=== PATIENT | male | born 1965 | race Caucasian/White ===

== ENCOUNTER 2018-07-10 13:17 | Outpatient (REF) | payer OTHER, SELFPAY ==
[2018-07-10 19:41] LABS: HCT 40.6 % (40.0-50.0); HGB 13.8 g/dL (13.5-17.5); Mean Corpuscular Hemoglobin 34.4 pg (27.0-33.0); Mean Corpuscular Volume 101.2 fL (80-95); Platelet Count 493 x1000/uL (130-400); RBC 4.01 m/cumm (4.50-6.00); RBC Distribution Width 12.2 % (11.8-14.1)
[2018-07-10 19:45] LABS: ALT 48 U/L (12-78); AST 80 U/L (15-37); Albumin 3.1 g/dL (3.4-5.0); Alkaline Phosphatase 177 U/L (46-116); Anion Gap 9.7 mmol/L (3-11); BUN 4 mg/dL (7-18); Bilirubin, Total 0.2 mg/dL (0.2-1.0); CO2 23.3 mmol/L (21.0-32.0); CREATININE 0.59 mg/dL (0.70-1.30); Calcium 8.2 mg/dL (8.5-10.1); Chloride 104 mmol/L (98-107); Cholesterol 179 mg/dL (50-200); Glucose 79 mg/dL (70-100); HDL Cholesterol 67 mg/dL (40-60); LDL CHOLESTEROL 100 mg/dL (<100); Potassium 4.7 mmol/L (3.5-5.1); Sodium 137 mmol/L (136-145); Total Protein 7.2 g/dL (6.4-8.2); Triglyceride 86 mg/dL (30-150)
[2018-07-13 10:21] LABS: Hepatitis C Ab w Rflx HCV PCR Negative (NEGAT)
== END 2018-07-10 13:37 ==
LOC: NCHCN 13:17
PROVIDERS: Visit Provider Internal Medicine
DX: I10 Essential (primary) hypertension (principal); Z00.00 Encounter for general adult medical examination without abnormal findings; Z11.59 Encounter for screening for other viral diseases
CPT/HCPCS: 80053; 80061; 83721; 85027; 86803

== ENCOUNTER 2018-11-30 21:02 | Outpatient (REF) | payer OTHER, SELFPAY ==
[2018-11-30 21:41] LABS: HGB 16.8 g/dL (13.5-17.5); Mean Corpuscular Hemoglobin 32.9 pg (27.0-33.0); Mean Corpuscular Volume 94.1 fL (80-95); Mean Platelet Volume 10.2 fL (8.0-11.0); Platelet Count 218 x1000/uL (130-400); RBC Distribution Width 13.3 % (11.8-14.1); White Blood Cell Count 8.13 k/cumm (4.4-10.8)
[2018-11-30 22:14] LABS: ALT 115 U/L (12-78); AST 220 U/L (15-37); Albumin 3.4 g/dL (3.4-5.0); Alkaline Phosphatase 133 U/L (46-116); BUN 7 mg/dL (7-18); Bilirubin, Total 1.1 mg/dL (0.2-1.0); CREATININE 0.75 mg/dL (0.70-1.30); Chloride 98 mmol/L (98-107); Glucose 80 mg/dL (70-100); Magnesium 1.7 mg/dL (1.8-2.4); Potassium 4.2 mmol/L (3.5-5.1); Sodium 136 mmol/L (136-145); TSH 1.54 uIU/mL (0.358-3.74); Total Protein 7.6 g/dL (6.4-8.2); Vitamin B12 518 pg/mL (193-986)
== END 2018-11-30 21:22 ==
LOC: NCHCN 21:02
PROVIDERS: Visit Provider Internal Medicine
DX: R55 Syncope and collapse (principal); J44.9 Chronic obstructive pulmonary disease, unspecified; R56.9 Unspecified convulsions; F10.11 Alcohol abuse, in remission; Z72.0 Tobacco use
CPT/HCPCS: 80053; 85027; 82607; 83735; 84443

== ENCOUNTER 2018-12-24 15:58 | Outpatient (CLI) | payer OTHER, SELFPAY | END 2018-12-24 16:18 | PROVIDERS: PCP Internal Medicine; Visit Provider Internal Medicine | DX: R69 Illness, unspecified (principal) ==

== ENCOUNTER 2019-02-17 00:36 | Outpatient (CLI) | payer OTHER, SELFPAY ==
--- NOTE | 2019-02-17 11:28 | DI.MRI_ITS ---
SYMPTOMS/DIAGNOSIS: CHRONIC LOW BACK PAIN, NECK PAIN, M54.2, M54.5 LUMBAR MRI: Sagittal T2, sagittal T1, sagittal STIR, and axial T1 and T2 and axial T2 MSMA pulse sequences were performed. There is an old compression fracture of L1. No other significant bony abnormality is seen. At L1-L2, there is evidence of degenerative disc disease. There is no disc protrusion. There are mild facet joint degenerative changes and no evidence of spinal stenosis. At L2-3, there is no evidence of a disc protrusion. Mild facet joint DJD is identified and there is no evidence of spinal stenosis. At L3-4, there is no evidence of a disc protrusion. Mild facet joint DJD is evident and there is no evidence of spinal stenosis. At L4-5, there is no evidence of a disc protrusion. Moderate facet joint DJD is identified and there is no evidence of significant spinal stenosis. At L5-S1, the disc appears intact with no evidence of a protrusion. Mild facet joint DJD is identified and there is no evidence of spinal stenosis. No intrinsic abnormality involving the lower dorsal cord, conus or filum terminale is seen. SUMMARY: An old compression fracture of L1 is demonstrated. There is evidence of facet joint DJD throughout the lumbar spine. No disc protrusion or evidence of significant spinal stenosis is apparent.
== END 2019-02-17 00:56 ==
PROVIDERS: PCP Internal Medicine; Visit Provider Internal Medicine
DX: M54.5 Low back pain (principal); M54.2 Cervicalgia; G89.29 Other chronic pain; M48.56XD Collapsed vertebra, not elsewhere classified, lumbar region, subsequent encounter for fracture with routine healing; M51.36 Other intervertebral disc degeneration, lumbar region; M47.817 Spondylosis without myelopathy or radiculopathy, lumbosacral region
CPT/HCPCS: 72148

== ENCOUNTER 2019-04-06 10:24 | Outpatient (REF) | payer OTHER, SELFPAY ==
[2019-04-06 13:41] LABS: ALT 152 U/L (12-78); AST 183 U/L (15-37); Alkaline Phosphatase 161 U/L (46-116); Bilirubin, Direct 0.13 mg/dL (0.00-0.20); Bilirubin, Total 0.2 mg/dL (0.2-1.0); Total Protein 8.3 g/dL (6.4-8.2)
== END 2019-04-06 10:44 ==
LOC: NCHCN 10:24
PROVIDERS: PCP Internal Medicine; Visit Provider Internal Medicine
DX: E83.42 Hypomagnesemia (principal); R94.5 Abnormal results of liver function studies
CPT/HCPCS: 80076; 83735

== ENCOUNTER 2019-05-21 12:10 | Outpatient (REF) | payer OTHER, SELFPAY ==
[2019-05-21 21:25] LABS: ALT 77 U/L (12-78); AST 45 U/L (15-37)
== END 2019-05-21 12:30 ==
LOC: NCHCN 12:10
PROVIDERS: PCP Internal Medicine; Visit Provider Nurse Practitioner Family
DX: R94.5 Abnormal results of liver function studies (principal)
CPT/HCPCS: 84450; 84460

== ENCOUNTER 2019-08-06 10:50 | Outpatient (REF) | payer OTHER, SELFPAY ==
[2019-08-06 14:11] LABS: ALT 15 U/L (16-63); AST 14 U/L (15-37); Albumin 3.7 g/dL (3.4-5.0); Alkaline Phosphatase 103 U/L (46-116); Anion Gap 8.9 mmol/L (3-11); BUN 6 mg/dL (7-18); Bilirubin, Total 0.3 mg/dL (0.2-1.0); CO2 27.1 mmol/L (21.0-32.0); Calcium 9.1 mg/dL (8.5-10.1); Chloride 101 mmol/L (98-107); Glucose 89 mg/dL (70-100); Potassium 4.6 mmol/L (3.5-5.1); Sodium 137 mmol/L (136-145); Total Protein 6.9 g/dL (6.4-8.2)
== END 2019-08-06 11:10 ==
LOC: NCHCN 10:50
PROVIDERS: PCP Internal Medicine; Visit Provider Internal Medicine
DX: I10 Essential (primary) hypertension (principal); J44.9 Chronic obstructive pulmonary disease, unspecified
CPT/HCPCS: 80053

== ENCOUNTER 2020-04-10 15:36 | Outpatient (REF) | payer OTHER, SELFPAY ==
[2020-04-10 20:48] LABS: Anion Gap 12.6 mmol/L (3-11); BUN 18 mg/dL (7-18); CO2 23.4 mmol/L (21.0-32.0); CREATININE 0.96 mg/dL (0.70-1.30); Calcium 9.1 mg/dL (8.5-10.1); Chloride 103 mmol/L (98-107); Glucose 77 mg/dL (74-106); Magnesium 2.2 mg/dL (1.8-2.4); Potassium 4.5 mmol/L (3.5-5.1); Sodium 139 mmol/L (136-145)
== END 2020-04-10 15:56 ==
LOC: NCHCN 15:36
PROVIDERS: PCP Internal Medicine; Visit Provider Internal Medicine
DX: F10.10 Alcohol abuse, uncomplicated (principal); R94.5 Abnormal results of liver function studies
CPT/HCPCS: 80048; 83735

== ENCOUNTER 2021-04-06 16:17 | Outpatient (REF) | payer OTHER, SELFPAY ==
[2021-04-06 12:58] LABS: HCT 44.7 % (40.0-50.0); HGB 15.3 g/dL (13.5-17.5); MCH 31.5 pg (27.0-33.0); MCHC 34.2 % (32.0-36.0); MPV 9.7 fL (8.0-11.0); Platelet Count 409 10^3/uL (130-400); RBC 4.86 10^6/uL (4.36-5.78); RDW 12.3 % (11.8-14.1); WBC 9.97 10^3/uL (4.4-10.8)
[2021-04-06 13:38] LABS: ALT 30 U/L (16-63); AST 26 U/L (15-37); Albumin 4.1 g/dL (3.4-5.0); Alkaline Phosphatase 96 U/L (46-116); Anion Gap 10.6 mmol/L (3-11); BUN 10 mg/dL (7-18); Bilirubin, Total 0.5 mg/dL (0.2-1.0); CO2 24.4 mmol/L (21.0-32.0); CREATININE 0.7 mg/dL (0.70-1.30); Chloride 104 mmol/L (98-107); Glucose 85 mg/dL (74-106); Potassium 4.8 mmol/L (3.5-5.1); Sodium 139 mmol/L (136-145); TSH 1.19 uIU/mL (0.36-3.74); Total Protein 7.4 g/dL (6.4-8.2); Vitamin B12 592 pg/mL (193-986)
== END 2021-04-06 16:18 | disposition home or self-care (01) ==
LOC: NCHCN 16:17
PROVIDERS: PCP Internal Medicine; Visit Provider Internal Medicine
DX: I10 Essential (primary) hypertension (principal); R41.3 Other amnesia; R53.83 Other fatigue; F10.21 Alcohol dependence, in remission; J44.9 Chronic obstructive pulmonary disease, unspecified
CPT/HCPCS: 80053; 85027; 82607; 84443

== ENCOUNTER 2021-12-21 00:17 | Outpatient (CLI) | payer OTHER, SELFPAY ==
--- NOTE | 2021-12-21 | DI.CTLCSR_ITS ---
Exam(s) CT CHEST LUNG CANCER SCREEN EXAM: CT CHEST LUNG CANCER SCREEN CLINICAL HISTORY: SCREENING FOR LUNG CA, SMOKER, F17.210 TECHNIQUE: Imaging Protocol: Axial computed tomography images with coronal and sagittal reformatted images were created and reviewed COMPARISON: CR CHEST 2 VIEWS PA,LAT from 09/15/2013 FINDINGS: Tracheobronchial tree: Patent where visualized. Pulmonary parenchyma: No consolidation or dominant measurable mass. Mild centrilobular emphysematous changes are present. Scarring or atelectasis is seen in the lung bases, particularly in the right lo wer lobe. There is a 1 cm area of nodularity associated with the scarring. Lung Nodules: None. Mediastinum and Monica: No dominant adenopathy or fluid collection. The esophagus is unremarkable. Thyroid gland: Unremarkable. Lymph nodes: Unremarkable. Pleura: No effusion or pneumothorax. Heart: The heart is not dilated. Coronary artery calcifications are present. No pericardial effusion . Aorta: Thoracic aorta non-dilated.Atherosclerosis. Upper abdomen: Unremarkable. Soft Tissues: Unremarkable. Bones: There are old healed rib fractures. There is an old to L1 compression fracture deformity. IMPRESSION: Right basilar pulmonary scarring with a 1 cm area of nodularity associated with the scarring. A shor t interval follow-up LD CT at 3 months is recommended for re-evaluation. Lung RADS Cat 4A - Suspicious: Findings for which additional diagnostic testing and/or tissue samplin g recommended Lung-RADS 1.0 CATEGORIES: Category 0 - Prior chest CT exam(s) being located for comparison. Category 1 - Annual screening in 12 months. No nodules or definitely benign nodules. Category 2 - Annual screening in 12 months. Benign appearance. Nodules with low likelihood of becomin g active cancer. Category 3 - 6-month follow-up. Probably benign. Short-term follow-up suggested. Nodules with low lik elihood of becoming active cancer. Category 4A - 3-month follow-up and CT/PET if >8 mm in size. Suspicious finding. Findings which requi re additional testing. Category 4B - Findings which require additional testing and tissue sampling. Suspicious finding. Category 4X - Category 3 or 4 nodules with additional features or imaging findings that increases the suspicion of malignancy. Modifier S- Potentially clinically significant finding. (Non lung cancer) RADIATION DOSE DELIVERED: 82.9mGy.cm Total DLP !Error CTDIvol 82.9mGy.cm Total DLP !Error CTDIvol DATA REPOSITORY: All CT scans at this facility are submitted to the National Radiology Data Registry (NRDR) Dose Index Registry (DIR) with the [employer] (ACR). RADIATION OPTIMIZATION: All CT scans at this facility use at least one of these dose optimization te chniques: automated exposure control; mA and/or kV adjustment per patient size (includes targeted exa ms where dose is matched to clinical indication); or iterative reconstruction.
== END 2021-12-21 00:37 ==
PROVIDERS: PCP Internal Medicine; Visit Provider Internal Medicine
DX: F17.210 Nicotine dependence, cigarettes, uncomplicated (principal); Z12.2 Encounter for screening for malignant neoplasm of respiratory organs; J98.11 Atelectasis; R91.8 Other nonspecific abnormal finding of lung field
CPT/HCPCS: 71271

== ENCOUNTER 2022-04-12 19:19 | Outpatient (REF) | payer OTHER, SELFPAY ==
[2022-04-12 14:26] LABS: HGB 16.5 g/dL (13.5-17.5); MCH 32.6 pg (27.0-33.0); MCHC 34.4 % (32.0-36.0); MCV 95 fL (80-95); MPV 9.2 fL (8.0-11.0); Platelet Count 430 10^3/uL (130-400); RBC 5.06 10^6/uL (4.36-5.78); WBC 8.71 10^3/uL (4.4-10.8)
[2022-04-12 15:04] LABS: ALT 51 U/L (16-63); AST 59 U/L (15-37); Albumin 3.8 g/dL (3.4-5.0); Alkaline Phosphatase 135 U/L (46-116); Anion Gap 15.3 mmol/L (3-11); BUN 10 mg/dL (7-18); Bilirubin, Total 0.4 mg/dL (0.2-1.0); CO2 21.7 mmol/L (21.0-32.0); CREATININE 0.7 mg/dL (0.70-1.30); Calcium 9.3 mg/dL (8.5-10.1); Chloride 99 mmol/L (98-107); Glucose 102 mg/dL (74-106); Potassium 5.1 mmol/L (3.5-5.1); Sodium 136 mmol/L (136-145); Total Protein 7.8 g/dL (6.4-8.2)
== END 2022-04-12 19:20 | disposition home or self-care (01) ==
LOC: NCHCN 19:19
PROVIDERS: PCP Internal Medicine; Visit Provider Family Medicine
DX: I10 Essential (primary) hypertension (principal); F32.9 Major depressive disorder, single episode, unspecified; F10.21 Alcohol dependence, in remission; J44.9 Chronic obstructive pulmonary disease, unspecified
CPT/HCPCS: 80053; 85027

== ENCOUNTER 2022-06-14 00:33 | Outpatient (CLI) | payer OTHER, SELFPAY ==
--- NOTE | 2022-06-14 13:45 | DI.CT_ITS ---
Exam(s) CT CHEST WO EXAM: CT CHEST WO CLINICAL HISTORY: 6-MO F/U ABNL CHEST CT, R91.8 TECHNIQUE: Imaging Protocol: Axial computed tomography images with coronal and sagittal reformatted images were created and reviewed CONTRAST MATERIAL: Intravenous: Omnipaque 350 Contrast volume:structured data in ml. COMPARISON: CR CHEST 2 VIEWS PA,LAT from 09/15/[address] CHEST LUNG CANCER SCREEN from 12/21/2021 FINDINGS: Tracheobronchial tree: No bronchiectasis or mucous plugging. Mediastinum and Monica: No dominant adenopathy or fluid collection. Pulmonary parenchyma: Mild emphysematous changes, greater in the upper lobes. Scarring in the right lateral upper and lower lobes. No change in area of nodular scarring in the lateral right lower lob e. No consolidation or dominant measurable mass. No new pulmonary nodules Pleura: No effusion or pneumothorax. Heart: The heart is not dilated. Mild coronary artery calcifications are seen. Aorta: Thoracic aorta non-dilated. Minimal atherosclerotic calcification. Upper abdomen: Unremarkable. Lymph nodes: Within normal limits. Bones: Multiple old right-sided rib fractures. Old L1 compression fracture. Mild degenerative disc changes in the lower thoracic region. Tubes, Catheters, and Lines: None Soft tissues: Mild bilateral gynecomastia. IMPRESSION: Stable appearance of scarring in the lateral and posterior right upper and lower lobes. No suspiciou s mass identified. The patient is at high risk for lung cancer, a low-dose screening CT could be performed in 1 year. RADIATION DOSE DELIVERED: 544.6mGy.cm Total DLP DATA REPOSITORY: All CT scans at this facility are submitted to the National Radiology Data Registry (NRDR) Dose Index Registry (DIR) with the [employer] (ACR). RADIATION OPTIMIZATION: All CT scans at this facility use at least one of these dose optimization te chniques: automated exposure control; mA and/or kV adjustment per patient size (includes targeted exa ms where dose is matched to clinical indication); or iterative reconstruction.
== END 2022-06-14 00:53 ==
PROVIDERS: PCP Internal Medicine; Visit Provider Family Medicine
DX: J98.4 Other disorders of lung
CPT/HCPCS: 71250

== ENCOUNTER 2023-03-24 09:54 | Outpatient (REF) | payer OTHER, SELFPAY ==
[2023-03-24 16:48] LABS: ALT 14 U/L (16-63); AST 17 U/L (15-37); Albumin 3.1 g/dL (3.4-5.0); Alkaline Phosphatase 118 U/L (46-116); Anion Gap 8.8 mmol/L (3-11); BUN 4 mg/dL (7-18); Bilirubin, Total 0.2 mg/dL (0.2-1.0); CO2 28.2 mmol/L (21.0-32.0); CREATININE 0.7 mg/dL (0.70-1.30); Calcium 8.6 mg/dL (8.5-10.1); Calculated LDL 100 mg/dL (<100); Chloride 96 mmol/L (98-107); Cholesterol 173 mg/dL (<200); Glucose 90 mg/dL (74-106); HDL Cholesterol 51 mg/dL (40-60); Sodium 133 mmol/L (136-145); Total Protein 7.4 g/dL (6.4-8.2); Triglyceride 110 mg/dL (<150)
== END 2023-03-24 09:55 | disposition home or self-care (01) ==
LOC: NCHCN 09:54
PROVIDERS: PCP Internal Medicine; Visit Provider Family Medicine
DX: I10 Essential (primary) hypertension (principal); R94.5 Abnormal results of liver function studies; F32.89 Other specified depressive episodes
CPT/HCPCS: 80053; 80061

== ENCOUNTER 2023-06-12 18:25 | Outpatient (REF) | payer OTHER, SELFPAY ==
[2023-06-12 16:06] LABS: Abs Immature Grans 0.03 10^3/uL (0.0-0.06); Absolute Basophil Count 0.16 10^3/uL (0.0-0.2); Absolute Lymphocyte Count 1.68 10^3/uL (1.2-3.4); Absolute Monocyte Count 0.96 10^3/uL (0.1-0.8); Absolute Neutrophil Count 6.31 10^3/uL (1.2-6.7); Basophils % 1.7; Eosinophils % 4.2; HGB 12.1 g/dL (13.5-17.5); Immature Grans % 0.3; Lymphocytes % 17.6; MCH 32.4 pg (27.0-33.0); MCHC 34.6 % (32.0-36.0); MCV 94 fL (80-95); Monocytes % 10.1; Neutrophils % 66.1; RBC 3.73 10^6/uL (4.36-5.78); RDW 14.2 % (11.8-14.1); WBC 9.54 10^3/uL (4.4-10.8)
[2023-06-12 17:11] LABS: ALT 27 U/L (16-63); AST 34 U/L (15-37); Albumin 2.5 g/dL (3.4-5.0); Alkaline Phosphatase 136 U/L (46-116); Anion Gap 12.9 mmol/L (3-11); BUN 4 mg/dL (7-18); Bilirubin, Total 0.3 mg/dL (0.2-1.0); CO2 22.1 mmol/L (21.0-32.0); CREATININE 0.6 mg/dL (0.70-1.30); Calcium 8.4 mg/dL (8.5-10.1); Chloride 96 mmol/L (98-107); Estimated GFR 111.89 (mL/min/1.73m2); Glucose 78 mg/dL (74-106); Potassium 5.1 mmol/L (3.5-5.1); Sodium 131 mmol/L (136-145); Total Protein 6.5 g/dL (6.4-8.2)
[2023-06-12 17:34] LABS: Diff Comment PLT Morph Reviewed; RBC Morphology Normal
== END 2023-06-12 18:26 | disposition home or self-care (01) ==
LOC: NCHCN 18:25
PROVIDERS: PCP Internal Medicine; Visit Provider Family Medicine
DX: R56.9 Unspecified convulsions (principal); R25.1 Tremor, unspecified; I10 Essential (primary) hypertension; R07.89 Other chest pain; J44.9 Chronic obstructive pulmonary disease, unspecified
CPT/HCPCS: 80053; 85025

== ENCOUNTER → 2023-06-13 01:00 | Outpatient (CLI) | payer OTHER, SELFPAY ==
--- NOTE | 2023-06-13 | DI.CTLCSR_ITS ---
Exam(s) CT CHEST LUNG CANCER SCREEN EXAM: CT CHEST LUNG CANCER SCREEN CLINICAL HISTORY: CIGARETTE SMOKER, F17.210, SCREENING FOR LUNG CA TECHNIQUE: Imaging Protocol: Axial computed tomography images with coronal and sagittal reformatted images were created and reviewed. Low dose screening protocol. COMPARISON: CT CT CHEST WO from 06/14/2022 CR XR RIBS ONLY LT from 06/13/2023 FINDINGS: Tracheobronchial tree: No bronchiectasis or mucus plugging.. Mediastinum and Monica: No dominant adenopathy or fluid collection. Pulmonary parenchyma: Mild bibasilar scarring. No consolidation or dominant measurable mass. Mild em physematous changes. Lung Nodules: None. Pleura: Small to moderate-sized left pleural effusion.. No pneumothorax. Heart: The heart is not dilated. [id number] coronary artery calcifications are seen. Aorta: Thoracic aorta non-dilated. Upper abdomen: Unremarkable. Bones: Acute mildly displaced fractures of the left 8th through 11th ribs. Nondisplaced 7th rib frac ture. Old L1 compression fracture. Multiple old right rib fractures. Soft Tissues: Mild gynecomastia. IMPRESSION: No suspicious pulmonary nodules. Acute fractures of 7th through 11th ribs. No pneumothorax. Small to moderate-sized left pleural eff usion. Lung RADS Cat 1 - Negative: No nodules and definitely benign nodules Lung-RADS 1.0 CATEGORIES: Category 0 - Prior chest CT exam(s) being located for comparison. Category 1 - Annual screening in 12 months. No nodules or definitely benign nodules. Category 2 - Annual screening in 12 months. Benign appearance. Nodules with low likelihood of becomin g active cancer. Category 3 - 6-month follow-up. Probably benign. Short-term follow-up suggested. Nodules with low lik elihood of becoming active cancer. Category 4A - 3-month follow-up and CT/PET if >8 mm in size. Suspicious finding. Findings which requi re additional testing. Category 4B - Findings which require additional testing and tissue sampling. Category 4X - Category 3 or 4 nodules with additional features or imaging findings that increases the suspicion of malignancy. Modifier S- Potentially clinically significant findings (non lung cancer) RADIATION DOSE DELIVERED: 83.39mGy.cm Total DLP DATA REPOSITORY: All CT scans at this facility are submitted to the National Radiology Data Registry (NRDR) Dose Index Registry (DIR) with the [employer] (ACR). RADIATION OPTIMIZATION: All CT scans at this facility use at least one of these dose optimization te chniques: automated exposure control; mA and/or kV adjustment per patient size (includes targeted exa ms where dose is matched to clinical indication); or iterative reconstruction.
--- NOTE | 2023-06-13 11:10 | DI.RAD_ITS ---
Exam(s) XR RIBS ONLY LT Exam: XR RIBS ONLY LT CLINICAL HISTORY: Acute chest wall pain, R07.89 TECHNIQUE: 2D digital imaging was performed. PA and lateral chest. Four views left ribs. COMPARISON: CT CT CHEST WO from 06/14/[address] CHEST LUNG CANCER SCREEN from 06/13/2023 FINDINGS: MEDIASTINUM: Normal. HEART: Normal. LUNGS: Clear. PLEURAL SPACE: Small left pleural effusion. No pneumothorax visible. LUNGS: Clear. No pneumothorax is seen. No infiltrate or effusion. HEART: Normal in size. BONES: Mildly displaced fractures of the left 8th through 11th ribs laterally.. No bony destructive lesion is seen. The spine is grossly intact. IMPRESSION: 1. Small left pleural effusion. 2. Fractures of left 8th through 11th ribs. DATA REPOSITORY: RADIATION DOSE DELIVERED:
== END ==
PROVIDERS: PCP Internal Medicine; Visit Provider Family Medicine
DX: F17.210 Nicotine dependence, cigarettes, uncomplicated (principal); Z12.2 Encounter for screening for malignant neoplasm of respiratory organs; X58.XXXA Exposure to other specified factors, initial encounter; S22.42XA Multiple fractures of ribs, left side, initial encounter for closed fracture
CPT/HCPCS: 71271; 71100

== ENCOUNTER → 2023-07-11 01:04 | Outpatient (CLI) | payer OTHER, SELFPAY ==
--- NOTE | 2023-07-11 | DI.MRI_ITS ---
Exam(s) MR BRAIN WO EXAM: MR BRAIN WO CLINICAL HISTORY: SEIZURE DISORDER R56.9 TECHNIQUE: Multiplanar multisequence MRI of the brain was performed. COMPARISON: No exams were available for comparison FINDINGS: VENTRICLES AND EXTRA AXIAL SPACES: Normal in size and morphology for the patient's age. MIDLINE SHIFT: None. CEREBRAL PARENCHYMA: No focus of restricted diffusion to suggest acute infarct. No space-occupying le emma identified. There are several areas of hyperintense signal in the white matter on the FLAIR and T2 weighted images most consistent with small vessel ischemic disease. The temporal lobes appear sym metric. There is generalized symmetric cerebral atrophy consistent with the patient's age. HEMORRHAGE: None. BRAINSTEM/CEREBELLUM: Normal. CALVARIUM: Normal. VISUALIZED PARANASAL SINUSES/MASTOIDS:There is marked mucosal thickening in the right maxillary sinus . Mild mucosal thickening is seen in the ethmoid air cells. The remaining visualized paranasal sinu ses and mastoid air cells are clear. [place]: Normal flow void. [place]: Unremarkable. OTHER FINDINGS: None. IMPRESSION: 1. No evidence of an acute infarct or intracranial mass. 2. Age-related cerebral atrophy and small vessel ischemic disease. 3. Right maxillary sinusitis. DATA REPOSITORY:
== END ==
PROVIDERS: PCP Internal Medicine; Visit Provider Family Medicine
DX: I67.82 Cerebral ischemia (principal)
CPT/HCPCS: 70551

== ENCOUNTER 2023-09-23 18:45 | Outpatient (REF) | payer OTHER, SELFPAY ==
[2023-09-23 15:06] LABS: Abs Immature Grans 0.03 10^3/uL (0.0-0.06); Absolute Basophil Count 0.06 10^3/uL (0.0-0.2); Absolute Eosinophil Count 0.05 10^3/uL (0.0-0.7); Absolute Lymphocyte Count 1.54 10^3/uL (1.2-3.4); Absolute Monocyte Count 0.95 10^3/uL (0.1-0.8); Absolute Neutrophil Count 8.15 10^3/uL (1.2-6.7); Basophils % 0.6; Eosinophils % 0.5; HCT 47.3 % (40.0-50.0); HGB 16.8 g/dL (13.5-17.5); Immature Grans % 0.3; Lymphocytes % 14.3; MCH 32.5 pg (27.0-33.0); MCHC 35.5 % (32.0-36.0); MCV 92 fL (80-95); MPV 9.3 fL (8.0-11.0); Monocytes % 8.8; Neutrophils % 75.5; Platelet Count 238 10^3/uL (130-400); RBC 5.17 10^6/uL (4.36-5.78); RDW-SD 47.6 fL; WBC 10.78 10^3/uL (4.4-10.8)
[2023-09-23 15:18] LABS: Iron 71 ug/dL (65-175); Total Iron Binding Capacity 248 ug/dL (250-450); Transferrin Sat 29 % (20-55)
[2023-09-23 15:47] LABS: ALT 24 U/L (16-63); AST 27 U/L (15-37); Albumin 3.3 g/dL (3.4-5.0); Alkaline Phosphatase 154 U/L (46-116); Anion Gap 13.2 mmol/L (3-11); BUN 5 mg/dL (7-18); CO2 20.8 mmol/L (21.0-32.0); CREATININE 0.7 mg/dL (0.70-1.30); Calcium 9.1 mg/dL (8.5-10.1); Chloride 95 mmol/L (98-107); Estimated GFR 106.14 (mL/min/1.73m2); Ferritin 199 ng/mL (26-388); Folate 7.7 ng/mL (8.6-20.0); Glucose 107 mg/dL (74-106); Potassium 4.4 mmol/L (3.5-5.1); Sodium 129 mmol/L (136-145); Total Protein 7.7 g/dL (6.4-8.2); Vitamin B12 333 pg/mL (193-986)
[2023-09-23 16:23] LABS: Bilirubin, Total 0.4 mg/dL (0.2-1.0)
--- OUTSIDE RECORDS SUMMARY | 2023-09-23 18:48 | XMS_ITS | CCD ---
Author Name Unknown Address [address] [place] [address] [phone] Organization Unknown Address [address] [place] [address] [phone] Care Team Providers Care [employer] M[employer] Name Role Phone AYESHA BRUNNER Attending Physician [id number] [phone] JOE GRIDER Er Physician 2 [phone] CHELSEY Negrete Registered Nurse [phone] Vital Signs Vital Sign Value Unit Date/Time Recent/Initial ? BMI (Body Mass Index) 25.8 kg/m^2 12/02/2022 09: 46 Initial VS Weight Measured 185 lbs 12/02/2022 09:46 Ini tial VS Height 71 in 12/02/2022 09:46 Initial VS BSA (Body Surface Area) 2.05 m^2 12/02/2022 0 9:46 Initial VS BP Systolic 130 mmHg 12/02/2022 09:46 Initial VS BP Diastolic 70 mmHg 12/02/2022 09:46 Initia l VS Respiratory Rate 18 bpm 12/02/2022 09:46 In itial VS Heart Rate 95 bpm 12/02/2022 09:46 Initial VS O2 % BldC Oximetry 100 % 12/02/2022 09:46 Initial VS Body Temperature 36.1 degrees 12/02/2022 09:46 In itial VS Allergies Allergy Code Allergy Type Reaction Status ALEVE [id number] Drug allergy respiratory distress, a ngiodema Active Procedures Unknown or Not Available. History of Immunizations Unknown or Not Available. Problems Problem Code Start Date Resolved Date Status Emphysema 28400465 Active HTN 61301723 Active Results Unknown or Not Available. Active Medications Medications Administered During Visit Medication Dose Units Frequency Route Date/Time of Last Dose PENICILLIN VK TABLET: 250MG 500 MG X1 PO 12/02/2022 10:46 ACETAMINOPHEN TABLET: 325MG 975 MG X1 PO 12/02/2022 10:46 Encounters Encounter Diagnosis Diagnosis Code Start Date Periapical abscess without sinus K047 12/02/2022 Social History Smoking Status Code Start Date End Date Current every day smoker [id number] Patient Decision Aids Unknown or Not Available. Discharge Instructions You were admitted to [facility] on 12/02/2022 09:45 with a principal diagnosis of Periapical abscess without sinus You were discharged from [facility] on 12/02/2022 11:13 Should you have any questions prior to discharge, please contact a member of your healthcare team. If you have left the hospital and have any questions, please contact your primary care physician. Chief Complaint and Reason For Visit Chief Complaint Date of Onset TOOTH INFECTION Function Status Unknown or Not Available. Plan of Care Unknown or Not Available. Referral/Transition of Care Unknown or Not Available.
[2023-10-01 16:43] LABS: Mono-oligo/Di-oligo Ratio 0.21 (0.00-0.10)
== END 2023-09-23 18:46 | disposition home or self-care (01) ==
LOC: NCHCN 18:45
PROVIDERS: PCP Family Medicine; Visit Provider Family Medicine
DX: F10.21 Alcohol dependence, in remission (principal)
CPT/HCPCS: 80053; 82373; 82607; 82728; 82746; 83540; 83550; 85025

== ENCOUNTER 2024-04-15 15:21 | Outpatient (REF) | payer MEDICARE, SELFPAY ==
[2024-04-15 15:04] LABS: Abs Immature Grans 0.02 10^3/uL (0.0-0.06); Absolute Basophil Count 0.07 10^3/uL (0.0-0.2); Absolute Eosinophil Count 0.47 10^3/uL (0.0-0.7); Absolute Lymphocyte Count 1.37 10^3/uL (1.2-3.4); Absolute Monocyte Count 0.68 10^3/uL (0.1-0.8); Absolute Neutrophil Count 6.08 10^3/uL (1.2-6.7); Basophils % 0.8 %; Eosinophils % 5.4 %; HCT 36.3 % (40.0-50.0); HGB 12.2 g/dL (13.5-17.5); Immature Grans % 0.2 %; Lymphocytes % 15.8 %; MCH 31.1 pg (27.0-33.0); MCHC 33.6 % (32.0-36.0); MCV 93 fL (80-95); MPV 9.2 fL (8.0-11.0); Monocytes % 7.8 %; Platelet Count 489 10^3/uL (130-400); RBC 3.92 10^6/uL (4.36-5.78); RDW 12.8 % (11.8-14.1); RDW-SD 43.6 fL; WBC 8.69 10^3/uL (4.4-10.8)
[2024-04-15 15:44] LABS: ALT 26 U/L (16-63); AST 24 U/L (15-37); Albumin 3.7 g/dL (3.4-5.0); Alkaline Phosphatase 109 U/L (46-116); Anion Gap 7.9 mmol/L (3-11); BUN 16 mg/dL (7-18); Bilirubin, Total 0.2 mg/dL (0.2-1.0); CO2 29.1 mmol/L (21.0-32.0); CREATININE 0.8 mg/dL (0.70-1.30); Calcium 9.3 mg/dL (8.5-10.1); Chloride 101 mmol/L (98-107); Estimated GFR 101.95 (mL/min/1.73m2); Glucose 118 mg/dL (74-106); Potassium 5.2 mmol/L (3.5-5.1); Sodium 138 mmol/L (136-145); Total Protein 7.2 g/dL (6.4-8.2); Vitamin B12 236 pg/mL (193-986)
[2024-04-15 15:47] LABS: Folate > 20.0 ng/mL (8.6-20.0)
== END 2024-04-15 15:22 | disposition home or self-care (01) ==
LOC: NCHCN 15:21
PROVIDERS: PCP Family Medicine; Visit Provider Family Medicine
DX: F03.90 Unspecified dementia, unspecified severity, without behavioral disturbance, psychotic disturbance, mood disturbance, and anxiety (principal)
CPT/HCPCS: 80053; 82607; 82746; 84443; 85025